=== PATIENT | female | born 2000 | race Hispanic/Latino ===

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

== ENCOUNTER 2024-09-08 13:44 | Emergency (ER) | payer SELFPAY ==
--- OUTSIDE RECORDS SUMMARY | 2024-09-08 13:48 | XMS REPORT | Continuity of Care Document ---
Author Name Unknown Address [address] [place] [address] [facility] thconnect Address [address] [place] [address] Care Team Providers Care Account Auditor Name Role Phone Uriah Truong Primary Care Physician [phone] Carrie Ellison Attending Clinician [phone] CARRIE FUENTES Attending Clinician Unavaila Leah aGrcia DO Attending Clinician [phone] LEAH GLORIA Attending Clinician Unavailab David Neumann Attending Clinician [phone] David DE LOS SANTOS Attending Clinician Unavailable Doctor Unassigned, [place]gram Attending Clinician U navailable CARRIE FUENTES Admitting Clinician Unavaila curt Payers Payer Name Policy Type Policy Number Effective Date Expirati on Date Source [facility] [id number] 2019 00:00:00 Problems Condition Name Condition Details Condition Category Status Onset Date Resolution Date Last Treatment Date Treating Clinician Comments Source No known active problems No known active problems Disease [facility] Allergies, Adverse Reactions, Alerts Allergy Name Allergy Type Status Severity Reaction(s) Onset Date Inactive Date Treating Clinician Comments Source NO KNOWN ALLERGIE S Drug Class Active [facility] Social History Social Habit Start Date Stop Date Quantity Comments Source Sexual orientation [facility] Exposure to SARS-CoV-2 (event) 2020-11-08 00:00:00 2020-12-08 20:50:00 Not sure [facility] Sex Assigned At 2002 00:00:00 2000 00:00:00 [facility] Smoking Status Start Date Stop Date Source Tobacco smoking consumption unknown [facility] Medications Ordered Medication Name Filled Medication Name Start Date Stop Date Current Medication? Ordering Clinician Indication Dosage Frequency Signature (SIG) Comments Components Source glycerin (adult) (FLEET GLYCERIN (ADULT)) suppository 1 Suppository 12-09 04:15: 00 12-09 03:20 :00 No 1{suppo sitory} 1 Suppositor y, Rectal, ONCE, 1 dose, 12/08/20 at 2315, JACKSON [facility] cefTRIAXone (ROCEPHIN) injection 1,000 mg 12-09 04:00: 00 12-09 03:11 :00 No 1000mg 1,000 mg, Intramuscu lar, ONCE, 1 dose, 12/08/20 at 2300, JACKSON
Re ason for Anti-Infec tive: Documented Infection< br>Documen marjorie Infection Site: Urine
D uration of Therapy: 7 days [facility] magnesium citrate solution 300 mL 12-09 03:30: 00 12-09 02:31 :00 No 300mL 300 mL, Oral, ONCE, 1 dose, 12/08/20 at 2230, JACKSON [facility] sodium phosphates (READY-TO-U SE ENEMA) 19-7 gram/118 mL enema 1 Enema 12-09 03:30: 00 12-09 02:35 :00 No 1{enema } 1 Enema, Rectal, ONCE, 1 dose, 12/08/20 at 2230, Routine [facility] docusate 100 mg capsule 12-08 00:00: 00 Yes [id number] 100mg Take 1 capsule by mouth once daily as needed for Constipati on. [facility] cefdinir 300 mg capsule 12-08 00:00: 00 12-16 04:59 :00 No [id number] 300mg Take 1 capsule by mouth every 12 (twelve) hours for 7 days. [facility] polyethylen e glycol 3350 (MIRALAX) 17 gram/dose powder 12-08 00:00: 00 12-14 04:59 :00 No [id number] 17g Take 17 g by mouth daily for 5 days. [facility] HYDROcodone -acetaminop hen (NORCO 5) 5-325 mg tablet 1 tablet 11-29 01:30: 00 11-29 00:40 :00 No 1{tbl} 1 tablet, Oral, ONCE, 1 dose, 11/28/20 at 2030, JACKSON [facility] diazePAM (VALIUM) tablet 5 mg 11-29 01:30: 00 11-29 00:40 :00 No 5mg 5 mg, Oral, ONCE, 1 dose, 11/28/20 at 2030, JACKSON [facility] cyclobenzap rine 10 mg tablet 11-28 00:00: 00 Yes [id number] 10mg Take 1 tablet by mouth 3 (three) times daily as needed for Muscle Spasms. [facility] ibuprofen (IBU) tablet 800 mg 11-24 21:15: 00 11-24 20:29 :00 No 800mg 800 mg, Oral, ONCE, 1 dose, 11/24/20 at 1615, JACKSON [facility] ibuprofen 600 mg tablet 11-24 00:00: 00 Yes [id number] 600mg Take 1 tablet by mouth every 6 (six) hours as needed for Pain (scale 4-6). [facility] ondansetron (ZOFRAN ODT) 4 mg disintegrat ing tablet 08-16 00:00: 00 Yes [id number] 4mg Take 1 tablet by mouth every 8 (eight) hours as needed for Nausea and Vomiting (N/V). [facility] albuterol 90 mcg/actuati on inhaler 08-16 00:00: 00 Yes [id number] 2{puff} Inhale 2 Puffs every 4 (four) hours as needed for Wheezing or Shortness of Breath. [facility] benzonatate 200 mg capsule 08-16 00:00: 00 Yes [id number] 200mg Take 1 capsule by mouth 3 (three) times daily as needed for Cough for up to 20 doses. [facility] ibuprofen 600 mg tablet 2019-07 00:00: 00 Yes [id number] 600mg Take 1 tablet by mouth every 6 (six) hours as needed for Pain (scale 4-6). [facility] ondansetron (ZOFRAN ODT) 4 mg disintegrat ing tablet 2019-07 00:00: 00 Yes [id number] 4mg Take 1 tablet by mouth every 8 (eight) hours as needed for Nausea and Vomiting (N/V). [facility] amoxicillin 500 mg capsule 2019-07 00:00: 00 07-10 05:59 :00 No [id number] 500mg Take 1 capsule by mouth 3 (three) times daily for 10 days. [facility] dexAMETHaso ne 2 mg tablet 2019-07 00:00: 00 06-30 05:59 :00 No [id number] 10mg Take 5 tablets by mouth once now for 1 dose. [facility] Vital Signs Vital Name Observation Time Observation Value Comments S ource Systolic blood pressure 2020-12-09 03:00:00 142 mm[Hg] [facility] Diastolic blood pressure 2020-12-09 03:00:00 92 mm[Hg] [facility] Heart rate 2020-12-09 03:00:00 105 /min [facility] Respiratory rate 2020-12-09 03:00:00 18 /min [facility] Oxygen saturation in Arterial blood by Pulse oximetry 2020-12-09 03:00:00 100 /min [facility] Body temperature 2020-12-09 02:41:00 36.67 Fransisca [facility] Body height 2020-12-09 01:52:00 157.5 cm [facility] Body weight 2020-12-09 01:52:00 68.04 kg [facility] BMI 2020-12-09 01:52:00 27.44 kg/m2 [facility] Systolic blood pressure 2020-12-09 03:00:00 142 mm[Hg] [facility] Diastolic blood pressure 2020-12-09 03:00:00 92 mm[Hg] [facility] Heart rate 2020-12-09 03:00:00 105 /min [facility] Respiratory rate 2020-12-09 03:00:00 18 /min [facility] Oxygen saturation in Arterial blood by Pulse oximetry 2020-12-09 03:00:00 100 /min [facility] Body temperature 2020-12-09 02:41:00 36.67 Fransisca [facility] Body height 2020-12-09 01:52:00 157.5 cm [facility] Body weight 2020-12-09 01:52:00 68.04 kg [facility] BMI 2020-12-09 01:52:00 27.44 kg/m2 [facility] Systolic blood pressure 2020-11-29 01:00:00 123 mm[Hg] [facility] Diastolic blood pressure 2020-11-29 01:00:00 82 mm[Hg] [facility] Heart rate 2020-11-29 01:00:00 78 /[facility] Respiratory rate 2020-11-29 01:00:00 20 /min [facility] Oxygen saturation in Arterial blood by Pulse oximetry 2020-11-29 01:00:00 100 /min [facility] Body temperature 2020-11-28 23:58:00 36.78 Fransisca [facility] Body weight 2020-11-28 23:58:00 70.308 kg [facility] Systolic blood pressure 2020-11-29 01:00:00 123 mm[Hg] [facility] Diastolic blood pressure 2020-11-29 01:00:00 82 mm[Hg] [facility] Heart rate 2020-11-29 01:00:00 78 /min [facility] Respiratory rate 2020-11-29 01:00:00 20 /min [facility] Oxygen saturation in Arterial blood by Pulse oximetry 2020-11-29 01:00:00 100 /min [facility] Body temperature 2020-11-28 23:58:00 36.78 Fransisca [facility] Body weight 2020-11-28 23:58:00 70.308 kg [facility] Respiratory rate 2020-11-24 19:59:00 20 /min [facility] Body weight 2020-11-24 19:59:00 70.308 kg [facility] Oxygen saturation in Arterial blood by Pulse oximetry 2020-11-24 19:59:00 99 /min [facility] Systolic blood pressure 2020-11-24 19:59:00 135 mm[Hg] [facility] Diastolic blood pressure 2020-11-24 19:59:00 86 mm[Hg] [facility] Heart rate 2020-11-24 19:59:00 87 /min [facility] Body temperature 2020-11-24 19:59:00 36.94 Fransisca [facility] Respiratory rate 2020-11-24 19:59:00 20 /min [facility] Body weight 2020-11-24 19:59:00 70.308 kg [facility] Oxygen saturation in Arterial blood by Pulse oximetry 2020-11-24 19:59:00 99 /min [facility] Systolic blood pressure 2020-11-24 19:59:00 135 mm[Hg] [facility] Diastolic blood pressure 2020-11-24 19:59:00 86 mm[Hg] [facility] Heart rate 2020-11-24 19:59:00 87 /min [facility] Body temperature 2020-11-24 19:59:00 36.94 Fransisca [facility] Systolic blood pressure 2020-08-16 16:13:00 133 mm[Hg] [facility] Diastolic blood pressure 2020-08-16 16:13:00 84 mm[Hg] [facility] Heart rate 2020-08-16 16:13:00 78 /min [facility] Body temperature 2020-08-16 16:13:00 37 Fransisca [facility] Respiratory rate 2020-08-16 16:13:00 20 /min [facility] Body height 2020-08-16 16:13:00 157.5 cm [facility] Body weight 2020-08-16 16:13:00 68.04 kg [facility] BMI 2020-08-16 16:13:00 27.44 kg/m2 [facility] Oxygen saturation in Arterial blood by Pulse oximetry 2020-08-16 16:13:00 98 /min [facility] Systolic blood pressure 2020-08-16 16:13:00 133 mm[Hg] [facility] Diastolic blood pressure 2020-08-16 16:13:00 84 mm[Hg] [facility] Heart rate 2020-08-16 16:13:00 78 /min [facility] Body temperature 2020-08-16 16:13:00 37 Fransisca [facility] Respiratory rate 2020-08-16 16:13:00 20 /min [facility] Body height 2020-08-16 16:13:00 157.5 cm [facility] Body weight 2020-08-16 16:13:00 68.04 kg [facility] BMI 2020-08-16 16:13:00 27.44 kg/m2 [facility] Oxygen saturation in Arterial blood by Pulse oximetry 2020-08-16 16:13:00 98 /min [facility] Systolic blood pressure 2020-06-29 23:54:00 137 mm[Hg] [facility] Diastolic blood pressure 2020-06-29 23:54:00 84 mm[Hg] [facility] Heart rate 2020-06-29 23:54:00 105 /min [facility] Body temperature 2020-06-29 23:54:00 37.39 Fransisca [facility] Respiratory rate 2020-06-29 23:54:00 18 /min [facility] Body height 2020-06-29 23:54:00 160 cm [facility] Body weight 2020-06-29 23:54:00 69.854 kg [facility] BMI 2020-06-29 23:54:00 27.28 kg/m2 [facility] Oxygen saturation in Arterial blood by Pulse oximetry 2020-06-29 23:54:00 98 /min [facility] Systolic blood pressure 2020-06-29 23:54:00 137 mm[Hg] [facility] Diastolic blood pressure 2020-06-29 23:54:00 84 mm[Hg] [facility] Heart rate 2020-06-29 23:54:00 105 /min [facility] Body temperature 2020-06-29 23:54:00 37.39 Fransisca [facility] Respiratory rate 2020-06-29 23:54:00 18 /min [facility] Body height 2020-06-29 23:54:00 160 cm [facility] Body weight 2020-06-29 23:54:00 69.854 kg [facility] BMI 2020-06-29 23:54:00 27.28 kg/m2 [facility] Oxygen saturation in Arterial blood by Pulse oximetry 2020-06-29 23:54:00 98 /min [facility] Procedures Procedure Date / Time Performed Performing Clinicia n Source XR KUB 2020-12-09 02:14:31 [facility] 2020-12-09 02:08:00 [facility] PO[facility] TEST 2020-12-09 02:07:00 Destiny Rosa [facility] CONSENT/REFUSAL FOR DIAGNOSIS AND TREATMENT 2020-12-09 01:42:33 Doctor Unassigned, Pegram [facility] URINALYSIS 2020-11-29 00:40:00 [facility] FOR [facility]AG[facility] AND TREATMENT 2020-11-28 23:50:46 Doctor Unassigned, [place] [facility] POCT TEST 2020-11-24 20:28:00 Hal Fuentes [facility] XR CHEST 2 VW 2020-11-24 20:22:33 Carrie Fuentes [facility] URINALYSIS 2020-11-24 20:21:00 Fidencio Carrie Anant [facility] CONSENT/REFUSAL FOR DIAGNOSIS AND TREATMENT 2020-11-24 19:54:17 Doctor Unassigned, [place] [facility] POCT TEST 2020-08-16 16:57:00 David De Los Santos [facility] NOTICE OF PRIVACY PRACTICES 2020-08-16 16:07:36 Doctor Unassigned, [place] [facility] CONSENT/REFUSAL FOR DIAGNOSIS AND TREATMENT 2020-08-16 16:07:17 Doctor Unassigned, [place] [facility] NOTICE OF PRIVACY PRACTICES 2020-06-29 23:44:57 Doctor Unassigned, [place] [facility] CONSENT/REFUSAL FOR DIAGNOSIS AND TREATMENT 2020-06-29 23:44:38 Doctor Unassigned, [place] [facility] Encounters Start Date/Time End Date/Time Encounter Type Admission Type Attending [facility] Care Department Encounter ID Source 2022-05-21 14:08:27 2022-05-21 14:08:27 Outpatient [facility] [id number] Magdiel Omer 2022-05-20 17:03:34 2022-05-20 17:03:34 Outpatient [facility] [id number] Magdiel Omer 2020-12-08 20:55:00 2020-12-08 22:53:00 Emergency CorwinAylin castañedajohn Anant [facility] 1.2.840.114 350.1.13.10 4.2.7.2.686 [id number] 2020-12-08 20:55:00 2020-12-08 22:53:00 Emergency Carrie Fuentes [facility] 1.2.840.114 350.1.13.10 4.2.7.2.686 [id number] [facility] 2020-12-08 20:55:00 2020-12-08 22:53:00 Emergency X CORWINRAMÍREZKATIEDEVIN CARRIE [facility] ERT [id number] [facility] 2020-11-28 19:00:00 2020-11-28 20:58:00 Emergency Leah Gloria [facility] 1.2.840.114 350.1.13.10 4.2.7.2.686 [id number] 2020-11-28 19:00:00 2020-11-28 20:58:00 Emergency Leah Gloria [facility] 1.2.840.114 350.1.13.10 4.2.7.2.686 [id number] [facility] 2020-11-28 19:00:00 2020-11-28 19:00:00 Emergency X LEAH GLORIA [facility] ERT [id number] [facility] 2020-11-24 15:00:00 2020-11-24 15:48:00 Emergency Aylin Fuentesjohn Anant [facility] 1.2.840.114 350.1.13.10 4.2.7.2.686 [id number] 2020-11-24 15:00:00 2020-11-24 15:48:00 Emergency Carrie Fuentes [facility] 1.2.840.114 350.1.13.10 4.2.7.2.686 [id number] [facility] 2020-11-24 14:54:00 2020-11-24 14:54:[address] [facility] ERT [id number] [facility] 2020-08-16 10:14:00 2020-08-16 11:35:00 Emergency David De Los Santos [facility] 1.2.840.114 350.1.13.10 4.2.7.2.686 [id number] 2020-08-16 10:14:00 2020-08-16 11:35:00 Emergency David De Los Santos [facility] 1.2.840.114 350.1.13.10 4.2.7.2.686 [id number] [facility] 2020-08-16 10:14:00 2020-08-16 10:14:00 Emergency X David DE LOS SANTOS [facility] ERT [id number] [facility] 2020-08-16 00:00:00 2020-08-16 00:00:00 Patient Secure Msg Doctor Unassigned, Pegram [facility] 1.2.840.114 350.1.13.10 4.2.7.2.686 [id number] [facility] 2020-08-16 00:00:00 2020-08-16 00:00:00 Orders Only Doctor Unassigned, Pegram [facility] 1.2.840.114 350.1.13.10 4.2.7.2.686 [id number] [facility] 2020-08-16 00:00:00 2020-08-16 00:00:00 Orders Only Doctor Unassigned, Pegram [facility] 1.2.840.114 350.1.13.10 4.2.7.2.686 [id number] 2020-06-29 17:56:00 2020-06-29 18:41:00 Emergency David De Los Santos [facility] 1.2.840.114 350.1.13.10 4.2.7.2.686 [id number] [facility] 2020-06-29 17:56:00 2020-06-29 18:41:00 Emergency David De Los Santos [facility] 1.2.840.114 350.1.13.10 4.2.7.2.686 [id number] 2020-06-29 17:45:00 2020-06-29 17:45:[address] [facility] ERT [id number] [facility] Results Test Description Test Time Test Comments Results Result Co mments Source [id number]:07:00* Test Item Value Reference Range Interpretation Comme nts POCT PREG (test code = 1605) negative On board controls acceptable with C Line (test code = 3574) present POCT PREG LOT # (test code = 3575) [id number] POCT PREG TEST DATE ( test code = 3576) 06/18/2022 Lab Interpretation (test cod e = 51675-0) Normal [facility] 00:59:53* Test Item Value Reference Range Interpretation Comme nts APPEARANCE (test code = 6004381266) Clear Clear COLOR (test code = 3150409434) Yellow Yellow PH (test code = 6968843595) 4.8-8.0 SP GRAVITY (test code = 7218187644) 1.003-1.030 GLU U QUAL (test code = 7961226645) Normal Normal BLOOD (test code = 4648813074) Negative Negative KETONES (test code = 0428378999) Negative Negative PROTEIN (test code = 2887-8) Negative Negative UROBILIN (test code = 0151369648) Normal Normal BILIRUBIN (test code = 2652375662) Negative Negative NITRITE (test code = 2270542449) Negative Negative LEUK RHONDA (test code = 2626943873) Negative Negative RBC/HPF (test code = 6768120882) <1 See_Comment [Automated Estrogen Gene Testa ge] The system which generated this result transmitted reference range: 0 - 3 HPF. The reference range was not used to interpret this result as normal/abnormal. WBC/HPF (test code = 1822530361) See_Comment [Automated Estrogen Gene Testa ge] The system which generated this result transmitted reference range: 0 - 5 HPF. The reference range was not used to interpret this result as normal/abnormal. BACTERIA (test code = 1063997409) Negative Negative MUCOUS (test code = 6066958402) Slight Negative LPF A SQ EPITH (test code = 9760007359) HPF Lab Interpretation (test code = 33205-1) [facility]normal [facility] 20:36:01* Test Item Value Reference Range Interpretation Comme nts APPEARANCE (test code = 8644751494) Clear Clear COLOR (test code = 9220707390) Yellow Yellow PH (test code = 8145259556) 4.8-8.0 SP GRAVITY (test code = 6683511498) 1.003-1.030 GLU U QUAL (test code = 7965411410) Normal Normal BLOOD (test code = 2190313751) Negative Negative KETONES (test code = 7178488785) Negative Negative PROTEIN (test code = 2887-8) Negative Negative UROBILIN (test code = 2676893767) Normal Normal BILIRUBIN (test code = 5237866026) Negative Negative NITRITE (test code = 2499851155) Negative Negative LEUK RHONDA (test code = 7452150513) Negative Negative RBC/HPF (test code = 7605881713) See_Comment [Automated messa ge] The system which generated this result transmitted reference range: 0 - 3 HPF. The reference range was not used to interpret this result as normal/abnormal. WBC/HPF (test code = 4212885037) See_Comment [Automated messa ge] The system which generated this result transmitted reference range: 0 - 5 HPF. The reference range was not used to interpret this result as normal/abnormal. BACTERIA (test code = 0644799107) Negative Negative MUCOUS (test code = 0482707903) Slight Negative LPF A SQ EPITH (test code = 0370776224) HPF Lab Interpretation (test code = 44290-3) [facility] [id number] 20:28:00* Test Item Value Reference Range Interpretation Comme nts POCT PREG (test code = 1605) negative On board controls acceptable with C Line (test code = 3574) present POCT PREG LOT # (test code = 3575) [id number] POCT PREG TEST DATE ( test code = 3576) 06/18/2022 Lab Interpretation (test cod e = 83469-8) [facility] [id number] 16:57:00* Test Item Value Reference Range Interpretation Comme nts POCT PREG (test code = 1605) negative On board controls acceptable with C Line (test code = 3574) present POCT PREG LOT # (test code = 3575) [id number] POCT PREG TEST DATE ( test code = 3576) 03/19/2022 Lab Interpretation (test cod e = 78889-9) Normal [facility]
[2024-09-08] MEDS ORDERED: KETOROLAC 30 MG/ML INJ ONE (14:22)
--- NOTE | 2024-09-08 14:39 | RAD REPORT ---
EXAMINATION: ONE VIEW CHEST XR CLINICAL INDICATION: CHEST PAIN TECHNIQUE: Frontal chest projection is submitted. Examination is limited by patient positioning and t echnique. COMPARISON: 12/09/2020 FINDINGS: The lungs are well inflated and clear. The heart is normal in size. No displaced fractures identified . IMPRESSION: No acute intrathoracic abnormalities.
[2024-09-08 14:48] LABS: Absolute Eosinophils 0.3 K/uL (0-0.5); Absolute Lymphocytes (CBC) 2.6 K/uL (0.7-4.9); Absolute Monocytes 0.6 K/uL (0.1-1.3); Absolute Neutrophil 4.5 K/uL (1.8-8.0); Basophils % 0.5 % (0-1.3); Eosinophils % 4.2 % (0-4.4); Hematocrit 46.7 % (36.0-45.0); Hemoglobin 15.6 g/dL (12.0-15.0); Lymphocytes % 31.8 % (15.3-44.8); MCHC 33.5 g/dL (32.0-36.0); MCV 89.7 fL (80-100); MPV 8.7 fL (7.6-11.3); Monocytes % 7.6 % (3.3-12.3); Neutrophils % 55.9 % (41.7-73.7); Platelets 343 thou/uL (152-406)
[2024-09-08 15:05] LABS: ALT/SGPT 17 U/L (13-56); AST/SGOT 14 U/L (15-37); Albumin 4.1 g/dL (3.4-5.0); Albumin/Globulin Ratio 1.1 (1.1-1.8); Alkaline Phosphatase 86 U/L (45-117); Anion Gap 8.6 mEq/L (5.0-15.0); BUN Blood Urea Nitrogen 9 mg/dL (7-18); Bicarbonate 25 mEq/L (21-32); Bilirubin Direct 0.2 mg/dL (0-0.2); Bilirubin Indirect, Calculated 0.5 mg/dL (0.2-0.8); Bilirubin Total 0.7 mg/dL (0.2-1.0); Globulin 3.8 g/dL (2.3-3.5); Glomerular Filtration Rate 107 ml/min (=/>90); Glucose Level 87 mg/dL (74-106); Potassium 3.6 mEq/L (3.5-5.1); Protein, Total 7.9 g/dL (6.4-8.2); Sodium Level 138 mEq/L (136-145)
[2024-09-08 15:08] LABS: Troponin High Sensitivity < 3.0 pg/mL (<58.9)
--- NOTE | 2024-09-08 15:31 | EDPHYS ---
Physician Documentation [facility] Name: Kiah Murray Age: 24 yrs Sex: Female : 2000 Arrival Date: 09/08/2024 Time: 13:44 Bed 20 Private MD: ED Physician Josse Reynoso HPI: 09/08 14:17 This 24 yrs old Female presents to ER via Ambulatory with complaints of Chest rt Pain, Breathing Difficulty. 14:17 Patient presents to the ED with chest pain starting at about 11:00 today. 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 States that the pain is worse with deep inspiration but denies any difficulty breathing to me. Denies other acute complaints at this time, symptoms are moderate severity, aching nature, nonradiating, no other aggravating elevating factors, states that the symptoms are beginning to improve now.. [employer] PACKAGES: 14:02 LMP 08/08/2023, unknown ap3 Historical: - Allergies: 14:01 No Known Allergies; ap3 - Home Meds: 14:01 None [Active]; ap3 - PMHx: 14:01 None; ap3 - Immunization history:: Client reports receiving the 2nd dose of the Covid vaccine, Flu vaccine is not up to date. - Infectious Disease History:: Denies. - Social history:: Smoking status: Reported history of juuling and/or vaping. Patient uses street drugs, marijuana. - Family history:: not pertinent. ROS: 14:17 Constitutional: Negative for fever, chills, and weight loss, Respiratory: Negative for rt shortness of breath, cough, wheezing, and pleuritic chest pain, Abdomen/GI: Negative for abdominal pain, nausea, vomiting, diarrhea, and constipation, MS/Extremity: Negative for injury and deformity, Skin: Negative for injury, rash, and discoloration, Neuro: Negative for headache, weakness, numbness, tingling, and seizure, 14:17 Cardiovascular: Positive for chest pain, Negative for chest pain, Exam: 14:17 Constitutional: This is a well developed, well nourished patient who is awake, alert, rt and in no acute distress. Head/Face: Normocephalic, atraumatic. Chest/axilla: Normal chest wall appearance and motion. Nontender with no deformity. No lesions are appreciated. Cardiovascular: Regular rate and rhythm with a normal S1 and S2. No gallops, murmurs, or rubs. Normal PMI, no JVD. No pulse deficits. Respiratory: Lungs have equal breath sounds bilaterally, clear to auscultation and percussion. No rales, rhonchi or wheezes noted. No increased work of breathing, no retractions or nasal flaring. Abdomen/GI: Soft, non-tender, with normal bowel sounds. No distension or tympany. No guarding or rebound. No evidence of tenderness throughout. Skin: Warm, dry with normal turgor. Normal color with no rashes, no lesions, and no evidence of cellulitis. MS/ Extremity: Pulses equal, no cyanosis. Neurovascular intact. Full, normal range of motion. 14:17 ECG was reviewed by the Attending Physician. Vital Signs: 13:59 BP 142 / 86; Pulse 71; Resp 17; Temp 98.4(O); Pulse Ox 100% ; Weight 68.04 kg; Height 5 ap3 ft. 2 in. ; Pain 9/10; 15:42 BP 126 / 82; Pulse 80; Resp 18 S; Pulse Ox 99% on R/A; kc6 13:59 Body Mass Index 27.44 (68.04 kg, 157.48 cm) ap3 13:59 Pain Scale: Adult ap3 MDM: 14:06 Medical Screening Exam initiated rt 15:54 Differential diagnosis: Chest wall pain, pulmonary contusion, pneumothorax. HEART rt Score: History: Slightly Suspicious (0), ECG: Normal (0), Age: < or = 45 years (0), Risk Factors: No Risk Factors Known (0), Troponin: < or = 1 x Normal Limit (0), Total Score = 0. Data reviewed: vital signs, nurses notes, lab test result(s), EKG, radiologic studies. I considered the following discharge prescriptions or medication management in the emergency department Medications were administered in the Emergency Department. See MAR. Independent interpretation of the following test(s) in the Emergency Department X-Ray: My interpretation is No pneumonia seen on interpretation of x-ray images. Test considered but Not performed: CT: Do not suspect pulmonary embolism clinically, PE RC negative, does not require CT angiogram. Counseling: I had a detailed discussion with the patient and/or guardian regarding the historical points, exam findings, and any diagnostic results supporting the discharge/admit diagnosis, lab results, radiology results, the need for outpatient follow up, to return to the emergency department if symptoms worsen or persist or if there are any questions or concerns that arise at home. Response to treatment: the patient's symptoms have markedly improved after treatment. 09/08 14:11 Order name: Basic Metabolic Panel; Complete Time: 15:17 rt 09/08 14:11 Order name: CBC with Diff; Complete Time: 15: rt 09/08 14:11 Order name: LFT's; Complete Time: 15:17 rt 09/08 14:11 Order name: Troponin HS; Complete Time: 15:17 rt 09/08 14:11 Order name: XRAY Chest (1 view); Complete Time: 15: rt 09/08 14:11 Order name: EKG; Complete Time: 14:11 rt 09/08 14:11 Order name: Cardiac monitoring; Complete Time: 14:44 rt 09/08 14:11 Order name: EKG - Nurse/Tech; Complete Time: 14:13 rt 09/08 14:11 Order name: IV Saline Lock; Complete Time: 14:44 rt 09/08 14:11 Order name: Labs collected and sent; Complete Time: 14:44 rt 09/08 14:11 Order name: O2 Per Protocol; Complete Time: 14:13 rt 09/08 14:11 Order name: O2 Sat Monitoring; Complete Time: 14:13 rt EC:17 Rate is 67 beats/min. Rhythm is regular, Normal Sinus Rhythm with No ectopy. QRS [place] rt is Normal. UT interval is normal. QRS interval is normal. QT interval is normal. No Q waves. T waves are Normal. No ST changes noted. Administered Medications: 14:44 Drug: Ketorolac IM 30 mg IM once Route: IM; Site: left deltoid; kc6 15:33 Follow up: Response: No adverse reaction; Pain is decreased kc6 Disposition Summary: 09/08/24 15:31 Discharge Ordered Notes: Location: Home rt Problem: new rt Symptoms: have improved rt Condition: Stable rt Diagnosis - Chest wall pain rt Followup: rt - With: Private Physician - When: 2 - 3 days - Reason: Discharge Instructions: - Discharge Summary Sheet rt - Chest Wall Pain rt Forms: - Work release form rt - Medication Reconciliation Form rt - Antibiotic Education rt - Prescription Opioid Use rt - Patient Portal Instructions rt - Leadership Thank You Letter rt Signatures: Dispatcher [employer] EDPiper Rao RN RN ap3 Madelaine Rice RN RN kc6 Josse Reynoso MD MD rt Corrections: (The following items were deleted from the chart) 14:11 14:11 BASIC METABOLIC PANEL+C.LAB.BRZ ordered. EDMS EDMS 14: 14:11 CBC+H.LAB.BRZ ordered. EDMS EDMS 14: 14:11 HEPATIC FUNCTION+C.LAB.BRZ ordered. EDMS EDMS 14: 14:11 Troponin High Sensitivity+C.LAB.BRZ ordered. EDMS EDMS
--- NOTE | 2024-09-08 15:31 | ER ---
Nurse's Notes [facility] Name: Kiah Murray Age: 24 yrs Sex: Female : 2000 Arrival Date: 09/08/2024 Time: 13:44 Bed 20 Private MD: Diagnosis: Chest wall pain Presentation: 09/08 13:59 Chief complaint: Patient states: "my heart hurts when i breathe and when i do certain ap3 movements, like stretching. It feels so tight". Patient currently rates the pain as a 9/10 and states she has never had this pain before. Coronavirus screen: At this time, the client does not indicate any symptoms associated with coronavirus-19. Ebola Screen: No symptoms or risks identified at this time. Initial Sepsis Screen: Does the patient meet any 2 criteria? No. Patient's initial sepsis screen is negative. Does the patient have a suspected source of infection? No. Patient's initial sepsis screen is negative. Risk Assessment: Do you want to hurt yourself or someone else? Patient reports no desire to harm self or others. Onset of symptoms was September 08, 2024 at 11:00. 13:59 Method Of Arrival: Ambulatory ap3 13:59 Acuity: LYN 2 ap3 Triage Assessment: 14:01 General: Appears in no apparent distress. Behavior is calm, cooperative, appropriate ap3 for age. Pain: Complains of pain in chest Pain currently is 9 out of 10 on a pain scale. Neuro: Level of Consciousness is awake, alert, obeys commands, Oriented to person, place, time, situation, Appropriate for age. Cardiovascular: Reports chest pain. Respiratory: Airway is patent Respiratory effort is even, unlabored, Respiratory pattern is regular, symmetrical. 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 - Infectious Disease History:: Denies. - Social history:: Smoking status: Reported history of juuling and/or vaping. Patient uses street drugs, marijuana. - Family history:: not pertinent. Screenin:02 [facility] ED Fall Risk Assessment (Adult) History of falling in the last 3 months, ap3 including since admission No falls in past 3 months (0 pts) Confusion or Disorientation No (0 pts) Intoxicated or Sedated No (0 pts) Impaired Gait No (0 pts) Mobility Assist Device Used No (0 pt) Altered Elimination No (0 pt) Score/Fall Risk Level 0 - 2 = Low Risk Oriented to surroundings, Maintained a safe environment, Educated pt \\T\\ family on fall prevention, incl call for assistance when getting out of bed, Assessed \\T\\ reinforced patient's understanding of fall precautions, Hourly rounding (assess needs \\T\\ fall precautionary measures) done, Used ambulatory aids as needed (educated on \\T\\ assisted with). Abuse screen: Denies threats or abuse. Nutritional screening: No deficits noted. Tuberculosis screening: No symptoms or risk factors identified. Assessment: 14:02 Pain: Pain began 11:00 am today. ap3 14:15 General: Appears in no apparent distress. comfortable, well groomed, well developed, kc6 Behavior is calm, cooperative, appropriate for age. Pain: Complains of pain in anterior aspect of left upper chest and left lateral anterior chest Pain does not radiate. Neuro: Level of Consciousness is awake, alert, obeys commands, Oriented to person, place, time, situation, Appropriate for age. Cardiovascular: Reports chest pain, Heart tones S1 S2 present Capillary refill < 3 seconds Rhythm is regular. Respiratory: Reports pain with movement pain with respiration Airway is patent Trachea midline Respiratory effort is even, unlabored, Respiratory pattern is regular, symmetrical, Breath sounds are clear bilaterally. GI: No signs and/or symptoms were reported involving the gastrointestinal system. : No signs and/or symptoms were reported regarding the genitourinary system. EENT: No signs and/or symptoms were reported regarding the EENT system. Derm: No signs and/or symptoms reported regarding the dermatologic system. Skin is intact, is healthy with good turgor, Skin is pink, warm \\T\\ dry. Musculoskeletal: No signs and/or symptoms reported regarding the musculoskeletal system. Circulation, motion, and sensation intact. Range of motion: intact in all extremities. 15:34 Reassessment: Patient appears in no apparent distress at this time. No changes from kc6 previously documented assessment. Patient and/or family updated on plan of care and expected duration. Pain level reassessed. Patient is alert, oriented x 3, equal unlabored respirations, skin warm/dry/pink. Vital Signs: 13:59 BP 142 / 86; Pulse 71; Resp 17; Temp 98.4(O); Pulse Ox 100% ; Weight 68.04 kg; Height 5 ap3 ft. 2 in. ; Pain 9/10; 15:42 BP 126 / 82; Pulse 80; Resp 18 S; Pulse Ox 99% on R/A; kc6 13:59 Body Mass Index 27.44 (68.04 kg, 157.48 cm) ap3 13:59 Pain Scale: Adult ap3 ED Course: 13:50 Patient arrived in ED. al6 13:51 Josse Reynoso MD is Attending Physician. rt 14:01 Triage completed. ap3 14:02 Arm band placed on right wrist. ap3 14:02 Patient maintains SpO2 saturation greater than 95% on room air. ap3 14:08 Madelaine Rice, RN is Primary Nurse. kc6 14:14 EKG done, by ED staff, reviewed by Josse Reynoso MD. ap3 14:30 XRAY Chest (1 view) In Process Unspecified. EDMS 14:44 Inserted saline lock: 20 gauge in right forearm, using aseptic technique. Blood kc6 collected. Flushed with 10 mL NS. 14:45 Patient has correct armband on for positive identification. Bed in low position. Call kc6 light in reach. Side rails up X 1. Adult w/ patient. monitor car operator on. Pulse ox on. NIBP on. Door closed. Noise minimized. Lights dimmed. Warm blanket given. Pillow given. 15:42 No provider procedures requiring assistance completed. IV discontinued, intact, kc6 bleeding controlled, No redness/swelling at site. Pressure dressing applied. Administered Medications: 14:44 Drug: Ketorolac IM 30 mg IM once Route: IM; Site: left deltoid; kc6 15:33 Follow up: Response: No adverse reaction; Pain is decreased kc6 Medication: 15:43 VIS not applicable for this client. kc6 Outcome: 15:31 Discharge ordered by . rt 15:42 Discharged to home ambulatory, with significant other, kc6 15:42 Condition: improved 15:42 Discharge instructions given to patient, Instructed on discharge instructions, follow up and referral plans. Demonstrated understanding of instructions, follow-up care, 15:43 Patient left the ED. kc6 Signatures: Dispatcher [employer] Piper Contreras RN RN ap3 Madelaine Rice RN RN kc6 Josse Reynoso MD MD rt Lynda Lacey
[2024-09-09 16:02] VITALS: TEMP 98.4
[2024-09-09 16:03] VITALS: BP 126/82; O2SAT 99
--- NOTE | 2024-09-12 12:16 | EKG ---
Test Date: 2024-09-08 Test Time: 14:11:59 [place] Machine Operator: ALP MEASUREMENT RESULTS: Intervals: Rate: 67 PA: 178 QRSD: 96 QT: 384 QTc: 405 [place]: P: 64 PA: 178 QRS: 83 T: 64 INTERPRETIVE STATEMENTS: Normal sinus rhythm Normal ECG Compared to ECG 12/09/2020 22:16:40 Sinus arrhythmia no longer present Myocardial infarct finding no longer present Electronically Signed On 09-12-24 12:12:04 [employer] STAFF by Aneudy Coleman
== END 2024-09-08 15:43 | disposition home or self-care (01) ==
LOC: ER 13:44
DX: R07.89 Other chest pain (principal)
CPT/HCPCS: 36415; 71045; 80048; 80076; 84484; 85025; 93005; 96372; 99285

== ENCOUNTER 2024-12-07 15:20 | Emergency (ER) | payer BC ==
--- OUTSIDE RECORDS SUMMARY | 2024-12-07 15:24 | XMS REPORT | Continuity of Care Document ---
Author Name Unknown Address [address] [place] [address] [facility] [place] Address 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 Phone Uriah Truong Primary Care Physician [phone] Carrie Ellison Attending Clinician [phone] CARRIE FUNETES Attending Clinician Unavaila ble Leah Gloria DO Attending Clinician [phone] LEAH GLORIA Attending Clinician Unavailab David Neumann Attending Clinician [phone] David DE LOS SANTOS Attending Clinician Unavailable Doctor Unassigned, [place] Attending Clinician U navailable CARRIE FUENTES Admitting Clinician Unavaila curt Payers Payer Name Policy Type Policy Number Effective Date Expirati on Date Source [facility] [id number] 2019 00:00:00 Problems Condition Name Condition Details Condition Category Status Onset Date Resolution Date Last Treatment Date Treating Clinician Comments Source No known active problems No known active problems Disease [facility] Allergies, Adverse Reactions, Alerts Allergy Name Allergy Type Status Severity Reaction(s) Onset Date Inactive Date Treating Clinician Comments Source NO KNOWN ALLERGIE S Drug Class Active [facility] Social History Social Habit Start Date Stop Date Quantity Comments Source Sexual orientation U [facility] Exposure to SARS-CoV-2 (event) 2020-11-08 00:00:00 2020-12-08 20:50:00 Not sure [facility] Sex Assigned At 2000 00:00:00 2000 00:00:00 [facility] Smoking Status Start Date Stop Date Source Tobacco smoking consumption unknown [facility] Medications Ordered Medication Name Filled Medication Name Start Date Stop Date Current Medication? Ordering Clinician Indication Dosage Frequency Signature (SIG) Comments Components Source glycerin (adult) (FLEET GLYCERIN (ADULT)) suppository 1 Suppository 12-09 04:15: 00 12-09 03:20 :00 No 1{suppo sitory} 1 Suppositor y, Rectal, ONCE, 1 dose, 12/08/20 at 2315, JACKSON [facility] cefTRIAXone (ROCEPHIN) injection 1,000 mg 12-09 04:00: 00 12-09 03:11 :00 No 1000mg 1,000 mg, Intramuscu lar, ONCE, 1 dose, 12/08/20 at 2300, JACKSON
Re ason for Anti-Infec tive: Documented Infection< br>Documen marjorie Infection Site: Urine
D uration of Therapy: 7 days [facility] magnesium citrate solution 300 mL 12-09 03:30: 00 12-09 02:31 :00 No 300mL 300 mL, Oral, ONCE, 1 dose, 12/08/20 at 2230, JACKSON [facility] sodium phosphates (READY-TO-U SE ENEMA) 19-7 gram/118 mL enema 1 Enema 12-09 03:30: 00 12-09 02:35 :00 No 1{enema } 1 Enema, Rectal, ONCE, 1 dose, 12/08/20 at 2230, Routine [facility] docusate 100 mg capsule 12-08 00:00: 00 Yes [id number] 100mg Take 1 capsule by mouth once daily as needed for Constipati on. [facility] cefdinir 300 mg capsule 12-08 00:00: 00 12-16 04:59 :00 No [id number] 300mg Take 1 capsule by mouth every 12 (twelve) hours for 7 days. [facility] polyethylen e glycol 3350 (MIRALAX) 17 gram/dose powder 12-08 00:00: 00 12-14 04:59 :00 No [id number] 17g Take 17 g by mouth daily for 5 days. [facility] HYDROcodone -acetaminop hen (NORCO 5) 5-325 mg tablet 1 tablet 11-29 01:30: 00 11-29 00:40 :00 No 1{tbl} 1 tablet, Oral, ONCE, 1 dose, 11/28/20 at 2030, JACKSON [facility] diazePAM (VALIUM) tablet 5 mg 11-29 01:30: 00 11-29 00:40 :00 No 5mg 5 mg, Oral, ONCE, 1 dose, 11/28/20 at 2030, JACKSON [facility] cyclobenzap rine 10 mg tablet 11-28 00:00: 00 Yes [id number] 10mg Take 1 tablet by mouth 3 (three) times daily as needed for Muscle Spasms. [facility] ibuprofen (IBU) tablet 800 mg 11-24 21:15: 00 11-24 20:29 :00 No 800mg 800 mg, Oral, ONCE, 1 dose, 11/24/20 at 1615, JACKSON [facility] ibuprofen 600 mg tablet 11-24 00:00: 00 Yes [id number] 600mg Take 1 tablet by mouth every 6 (six) hours as needed for Pain (scale 4-6). [facility] ondansetron (ZOFRAN ODT) 4 mg disintegrat ing tablet 08-16 00:00: 00 Yes [id number] 4mg Take 1 tablet by mouth every 8 (eight) hours as needed for Nausea and Vomiting (N/V). [facility] albuterol 90 mcg/actuati on inhaler 08-16 00:00: 00 Yes [id number] 2{puff} Inhale 2 Puffs every 4 (four) hours as needed for Wheezing or Shortness of Breath. [facility] benzonatate 200 mg capsule 08-16 00:00: 00 Yes [id number] 200mg Take 1 capsule by mouth 3 (three) times daily as needed for Cough for up to 20 doses. [facility] ibuprofen 600 mg tablet 2019-07 00:00: 00 Yes [id number] 600mg Take 1 tablet by mouth every 6 (six) hours as needed for Pain (scale 4-6). [facility] ondansetron (ZOFRAN ODT) 4 mg disintegrat ing tablet 2019-07 00:00: 00 Yes [id number] 4mg Take 1 tablet by mouth every 8 (eight) hours as needed for Nausea and Vomiting (N/V). [facility] amoxicillin 500 mg capsule 2019-07 00:00: 00 07-10 05:59 :00 No [id number] 500mg Take 1 capsule by mouth 3 (three) times daily for 10 days. [facility] dexAMETHaso ne 2 mg tablet 2019-07 00:00: 00 06-30 05:59 :00 No [id number] 10mg Take 5 tablets by mouth once now for 1 dose. [facility] Vital Signs Vital Name Observation Time Observation Value Comments S tanisha Systolic blood pressure 2020-12-09 03:00:00 142 mm[Hg] [facility] Diastolic blood pressure 2020-12-09 03:00:00 92 mm[Hg] [facility] Heart rate 2020-12-09 03:00:00 105 /min [facility] Respiratory rate 2020-12-09 03:00:00 18 /min [facility] Oxygen saturation in Arterial blood by Pulse oximetry 2020-12-09 03:00:00 100 /min [facility] Body temperature 2020-12-09 02:41:00 36.67 Fransisca [facility] Body height 2020-12-09 01:52:00 157.5 cm [facility] Body weight 2020-12-09 01:52:00 68.04 kg [facility] BMI 2020-12-09 01:52:00 27.44 kg/m2 [facility] Systolic blood pressure 2020-12-09 03:00:00 142 mm[Hg] [facility] Diastolic blood pressure 2020-12-09 03:00:00 92 mm[Hg] [facility] Heart rate 2020-12-09 03:00:00 105 /min [facility] Respiratory rate 2020-12-09 03:00:00 18 /min [facility] Oxygen saturation in Arterial blood by Pulse oximetry 2020-12-09 03:00:00 100 /min [facility] Body temperature 2020-12-09 02:41:00 36.67 Fransisca [facility] Body height 2020-12-09 01:52:00 157.5 cm [facility] Body weight 2020-12-09 01:52:00 68.04 kg [facility] BMI 2020-12-09 01:52:00 27.44 kg/m2 [facility] Systolic blood pressure 2020-11-29 01:00:00 123 mm[Hg] [facility] Diastolic blood pressure 2020-11-29 01:00:00 82 mm[Hg] [facility] Heart rate 2020-11-29 01:00:00 78 /min [facility] Respiratory rate 2020-11-29 01:00:00 20 /min [facility] Oxygen saturation in Arterial blood by Pulse oximetry 2020-11-29 01:00:00 100 /min [facility] Body temperature 2020-11-28 23:58:00 36.78 Fransisca [facility] Body weight 2020-11-28 23:58:00 70.308 kg [facility] Systolic blood pressure 2020-11-29 01:00:00 123 mm[Hg] [facility] Diastolic blood pressure 2020-11-29 01:00:00 82 mm[Hg] [facility] Heart rate 2020-11-29 01:00:00 78 /min [facility] Respiratory rate 2020-11-29 01:00:00 20 /min [facility] Oxygen saturation in Arterial blood by Pulse oximetry 2020-11-29 01:00:00 100 /min [facility] Body temperature 2020-11-28 23:58:00 36.78 Fransisca [facility] Body weight 2020-11-28 23:58:00 70.308 kg [facility] Respiratory rate 2020-11-24 19:59:00 20 /min [facility] Body weight 2020-11-24 19:59:00 70.308 kg [facility] Oxygen saturation in Arterial blood by Pulse oximetry 2020-11-24 19:59:00 99 /min [facility] Systolic blood pressure 2020-11-24 19:59:00 135 mm[Hg] [facility] Diastolic blood pressure 2020-11-24 19:59:00 86 mm[Hg] [facility] Heart rate 2020-11-24 19:59:00 87 /min [facility] Body temperature 2020-11-24 19:59:00 36.94 Fransisca [facility] Respiratory rate 2020-11-24 19:59:00 20 /min [facility] Body weight 2020-11-24 19:59:00 70.308 kg [facility] Oxygen saturation in Arterial blood by Pulse oximetry 2020-11-24 19:59:00 99 /min [facility] Systolic blood pressure 2020-11-24 19:59:00 135 mm[Hg] [facility] Diastolic blood pressure 2020-11-24 19:59:00 86 mm[Hg] [facility] Heart rate 2020-11-24 19:59:00 87 /min [facility] Body temperature 2020-11-24 19:59:00 36.94 Fransisca [facility] Systolic blood pressure 2020-08-16 16:13:00 133 mm[Hg] [facility] Diastolic blood pressure 2020-08-16 16:13:00 84 mm[Hg] [facility] Heart rate 2020-08-16 16:13:00 78 /min [facility] Body temperature 2020-08-16 16:13:00 37 Fransisca [facility] Respiratory rate 2020-08-16 16:13:00 20 /min [facility] Body height 2020-08-16 16:13:00 157.5 cm [facility] weight 2020-08-16 16:13:00 68.04 kg Univ [facility] BMI 2020-08-16 16:13:00 27.44 kg/m2 [facility] Oxygen saturation in Arterial blood by Pulse oximetry 2020-08-16 16:13:00 98 /min [facility] Systolic blood pressure 2020-08-16 16:13:00 133 mm[Hg] [facility] Diastolic blood pressure 2020-08-16 16:13:00 84 mm[Hg] [facility] Heart rate 2020-08-16 16:13:00 78 /min [facility] Body temperature 2020-08-16 16:13:00 37 Fransisca [facility] Respiratory rate 2020-08-16 16:13:00 20 /min [facility] Body height 2020-08-16 16:13:00 157.5 cm [facility] Body weight 2020-08-16 16:13:00 68.04 kg [facility] BMI 2020-08-16 16:13:00 27.44 kg/m2 [facility] Oxygen saturation in Arterial blood by Pulse oximetry 2020-08-16 16:13:00 98 /min [facility] Systolic blood pressure 2020-06-29 23:54:00 137 mm[Hg] [facility] Diastolic blood pressure 2020-06-29 23:54:00 84 mm[Hg] [facility] Heart rate 2020-06-29 23:54:00 105 /min [facility] Body temperature 2020-06-29 23:54:00 37.39 Fransisca [facility] Respiratory rate 2020-06-29 23:54:00 18 /min [facility] Body height 2020-06-29 23:54:00 160 cm [facility] Body weight 2020-06-29 23:54:00 69.854 kg [facility] BMI 2020-06-29 23:54:00 27.28 kg/m2 [facility] Oxygen saturation in Arterial blood by Pulse oximetry 2020-06-29 23:54:00 98 /min [facility] Systolic blood pressure 2020-06-29 23:54:00 137 mm[Hg] [facility] Diastolic blood pressure 2020-06-29 23:54:00 84 mm[Hg] [facility] Heart rate 2020-06-29 23:54:00 105 /min [facility] Body temperature 2020-06-29 23:54:00 37.39 Fransisca [facility] Respiratory rate 2020-06-29 23:54:00 18 /min [facility] Body height 2020-06-29 23:54:00 160 cm [facility] Body weight 2020-06-29 23:54:00 69.854 kg [facility] BMI 2020-06-29 23:54:00 27.28 kg/m2 [facility] Oxygen saturation in Arterial blood by Pulse oximetry 2020-06-29 23:54:00 98 /min [facility] Procedures Procedure Date / Time Performed Performing Clinicia n Source XR KUB 2020-12-09 02:14:31 [facility] 2020-12-09 02:08:00 [facility] PO[facility] TEST 2020-12-09 02:07:00 Destiny Rosa [facility] CONSENT/REFUSAL FOR DIAGNOSIS AND TREATMENT 2020-12-09 01:42:33 Doctor Unassigned, [place] [facility] URINALYSIS 2020-11-29 00:40:00 [facility]REFUS[facility] FOR DIAGNOSIS AND TREATMENT 2020-11-28 23:50:46 Doctor Unassigned, [place] [facility] POCT TEST 2020-11-24 20:28:00 Hal Fuentes [facility] XR CHEST 2 VW 2020-11-24 20:22:33 Carrie Fuentes [facility] URINALYSIS 2020-11-24 20:21:00 Carrie Fuentes U [facility] CONSENT/REFUSAL FOR DIAGNOSIS AND TREATMENT 2020-11-24 19:54:17 Doctor Unassigned, [place] [facility] POCT TEST 2020-08-16 16:57:00 David De Los Santos [facility] NOTICE OF PRIVACY PRACTICES 2020-08-16 16:07:36 Doctor Unassigned, [place] [facility] CONSENT/REFUSAL FOR DIAGNOSIS AND TREATMENT 2020-08-16 16:07:17 Doctor Unassigned, [place] [facility] NOTICE OF PRIVACY PRACTICES 2020-06-29 23:44:57 Doctor Unassigned, [place] [facility] CONSENT/REFUSAL FOR DIAGNOSIS AND TREATMENT 2020-06-29 23:44:38 Doctor Unassigned, [place] [facility] Encounters Start Date/Time End Date/Time Encounter Type Admission Type Attending [facility] Care Department Encounter ID Source 2022-05-21 14:08:27 2022-05-21 14:08:27 Outpatient [facility] [id number] 2022-05-20 17:03:34 2022-05-20 17:03:34 Outpatient [facility] [id number] 2020-12-08 20:55:00 2020-12-08 22:53:00 Emergency Carrie Fuentes [facility] 1.2.840.114 350.1.13.10 4.2.7.2.686 [id number] 2020-12-08 20:55:00 2020-12-08 22:53:00 Emergency Carrie Fuentes [facility] 1.2.840.114 350.1.13.10 4.2.7.2.686 [id number] [facility] 2020-12-08 20:55:00 2020-12-08 22:53:00 Emergency X CARRIE FUENTES [facility] ERT [id number] [facility] 2020-11-28 19:00:00 2020-11-28 20:58:00 Emergency Leah Gloria [facility] 1.2.840.114 350.1.13.10 4.2.7.2.686 [id number] 2020-11-28 19:00:00 2020-11-28 20:58:00 Emergency Leah Gloria [facility] 1.2.840.114 350.1.13.10 4.2.7.2.686 [id number] [facility] 2020-11-28 19:00:00 2020-11-28 19:00:00 Emergency X LEAH GLORIA [facility] ERT [id number] [facility] 2020-11-24 15:00:00 2020-11-24 15:48:00 Emergency Carrie Fuentes [facility] 1.2.840.114 350.1.13.10 4.2.7.2.686 [id number] 2020-11-24 15:00:00 2020-11-24 15:48:00 Emergency Carrie Fuentes [facility] 1.2.840.114 350.1.13.10 4.2.7.2.686 [id number] [facility] 2020-11-24 14:54:00 2020-11-24 14:54:00 Emergency X [facility] ERT [id number] [facility] 2020-08-16 10:14:00 2020-08-16 11:35:00 Emergency David De Los Santos [facility] 1.2.840.114 350.1.13.10 4.2.7.2.686 [id number] 2020-08-16 10:14:00 2020-08-16 11:35:00 Emergency Scotty, K [facility] 1.2.840.114 350.1.13.10 4.2.7.2.686 [id number] [facility] 2020-08-16 10:14:00 2020-08-16 10:14:00 Emergency X David DE LOS SANTOS [facility] ERT [id number] [facility] 2020-08-16 00:00:00 2020-08-16 00:00:00 Patient Secure Msg Doctor Unassigned, [place] [facility] 1.2.840.114 350.1.13.10 4.2.7.2.686 [id number] [facility] 2020-08-16 00:00:00 2020-08-16 00:00:00 Orders Only Doctor Unassigned, [place] [facility] 1.2.840.114 350.1.13.10 4.2.7.2.686 [id number] [facility] 2020-08-16 00:00:00 2020-08-16 00:00:00 Orders Only Doctor Unassigned, [place] [facility] 1.2.840.114 350.1.13.10 4.2.7.2.686 [id number] 2020-06-29 17:56:00 2020-06-29 18:41:00 Emergency David De Los Santos [facility] 1.2.840.114 350.1.13.10 4.2.7.2.686 [id number] [facility] 2020-06-29 17:56:00 2020-06-29 18:41:00 Emergency David De Los Santos [facility] 1.2.840.114 350.1.13.10 4.2.7.2.686 [id number] 2020-06-29 17:45:00 2020-06-29 17:45:00 Emergency X [facility] ERT [id number] [facility] Results Test Description Test Time Test Comments Results Result Co mments Source [id number]:07[facility]00* Test Item Value Reference Range Interpretation Comme nts POCT PREG (test code = 1605) negative On board controls acceptable with C Line (test code = 3574) present POCT PREG LOT # (test code = 3575) [id number] POCT PREG TEST DATE ( test code = 3576) 06/18/2022 Lab Interpretation (test cod e = 66849-3) Normal [facility] 00:59:53* Test Item Value Reference Range Interpretation Comme nts APPEARANCE (test code = 7332009121) Clear Clear COLOR (test code = 0873581397) Yellow Yellow PH (test code = 9352987155) 4.8-8.0 SP GRAVITY (test code = 0615252191) 1.003-1.030 GLU U QUAL (test code = 4732783723) Normal Normal BLOOD (test code = 0091596464) Negative Negative KETONES (test code = 5865420254) Negative Negative PROTEIN (test code = 2887-8) Negative Negative UROBILIN (test code = 8765596043) Normal Normal BILIRUBIN (test code = 1942925439) Negative Negative NITRITE (test code = 0414719573) Negative Negative LEUK RHONDA (test code = 8414392564) Negative Negative RBC/HPF (test code = 4419719306) <1 See_Comment [Automated [employer] Just Shared[employer] ge] The system which generated this result transmitted reference range: 0 - 3 HPF. The reference range was not used to interpret this result as normal/abnormal. WBC/HPF (test code = 0063387513) See_Comment [Automated [employer] Shared[employer]] The system which generated this result transmitted reference range: 0 - 5 HPF. The reference range was not used to interpret this result as normal/abnormal. BACTERIA (test code = 5664771228) Negative Negative MUCOUS (test code = 0718190465) Slight Negative LPF A SQ EPITH (test code = 5793664949) HPF Lab Interpretation (test code = 05834-9) [facility]normal [facility] 20[facility]36:01* Test Item Value Reference Range Interpretation Comme nts APPEARANCE (test code = 1463797854) Clear Clear COLOR (test code = 4384031904) Yellow Yellow PH (test code = 9904189532) 4.8-8.0 SP GRAVITY (test code = 5579711791) 1.003-1.030 GLU U QUAL (test code = 9951134936) Normal Normal BLOOD (test code = 2212382086) Negative Negative KETONES (test code = 4524319526) Negative Negative PROTEIN (test code = 2887-8) Negative Negative UROBILIN (test code = 0551154337) Normal Normal BILIRUBIN (test code = 5296043133) Negative Negative NITRITE (test code = 0336572600) Negative Negative LEUK RHONDA (test code = 3338524043) Negative Negative RBC/HPF (test code = 7761494842) See_Comment [Automated [employer]] The system which generated this result transmitted reference range: 0 - 3 HPF. The reference range was not used to interpret this result as normal/abnormal. WBC/HPF (test code = 4912938885) See_Comment [Automated [employer] Shared[employer]] The system which generated this result transmitted reference range: 0 - 5 HPF. The reference range was not used to interpret this result as normal/abnormal. BACTERIA (test code = 0032385077) Negative Negative MUCOUS (test code = 8051541585) Slight Negative LPF A SQ EPITH (test code = 6226543877) HPF Lab Interpretation (test code = 25039-1) Abnormal [facility] [id number] 20:28:00* Test Item Value Reference Range Interpretation Comme nts POCT PREG (test code = 1605) negative On board controls acceptable with C Line (test code = 3574) present POCT PREG LOT # (test code = 3575) [id number] POCT PREG TEST DATE ( test code = 3576) 06/18/2022 Lab Interpretation (test cod e = 81766-8) Normal [facility] [id number] 16:57:00* Test Item Value Reference Range Interpretation Comme nts POCT PREG (test code = 1605) negative On board controls acceptable with C Line (test code = 3574) present POCT PREG LOT # (test code = 3575) [id number] POCT PREG TEST DATE ( test code = 3576) 03/19/2022 Lab Interpretation (test cod e = 94106-2) Normal [facility]
[2024-12-07 16:03] LABS: Absolute Eosinophils 0.3 K/uL (0-0.5); Absolute Lymphocytes (CBC) 2.3 K/uL (0.7-4.9); Absolute Monocytes 0.5 K/uL (0.1-1.3); Absolute Neutrophil 4.6 K/uL (1.8-8.0); Basophils % 0.6 % (0-1.3); Eosinophils % 3.8 % (0-4.4); Hematocrit 38.6 % (36.0-45.0); Hemoglobin 13.4 g/dL (12.0-15.0); Lymphocytes % 29.3 % (15.3-44.8); MCH 30.8 pg (27.0-35.0); MCHC 34.8 g/dL (32.0-36.0); MCV 88.5 fL (80-100); MPV 8.5 fL (7.6-11.3); Monocytes % 7.1 % (3.3-12.3); Neutrophils % 59.2 % (41.7-73.7); Nucleated Red Blood Cells % 0.1 % (0-0); Platelets 294 thou/uL (152-406); RBC Red Blood Cell Count 4.36 M/uL (3.86-4.86); Red Cell Distribution Width 13.3 % (12.1-15.2)
[2024-12-07 16:08] LABS: Specific Gravity 1.028 (1.005-1.030); Urine Bilirubin NEGATIVE (Negative); Urine Blood Negative (Negative); Urine Clarity Clear (Clear); Urine Color Light-Yellow (Yellow); Urine Glucose NEGATIVE (Negative); Urine Ketones NEGATIVE (Negative); Urine Microscopic Reflex YN NO UMIC; Urine Nitrite NEGATIVE (Negative); Urine Protein NEGATIVE (Negative); Urine Urobilinogen Normal (Normal); Urine pH 6.5 (5.0-7.0)
[2024-12-07 16:09] LABS: Specific Gravity 1.028 (1.005-1.030)
[2024-12-07 16:28] LABS: Albumin 3.7 g/dL (3.4-5.0); Albumin/Globulin Ratio 1.2 (1.1-1.8); Anion Gap 9.4 mEq/L (5.0-15.0); Bilirubin Total 0.3 mg/dL (0.2-1.0); Potassium 3.4 mEq/L (3.5-5.1); Protein, Total 6.7 g/dL (6.4-8.2)
--- NOTE | 2024-12-07 16:50 | RAD REPORT ---
EXAMINATION: Head Brain Wo Cont CLINICAL INDICATION: Female, 24 years old.HEADACHE TECHNIQUE: Axial CT images from the skull base to the vertex without intravenous contrast. Coronal an d sagittal reformatted images were created from the data set. One or more of the following dose reduction techniques were used: Automated exposure control, adjustment of the mA and/or kV according to patient size, and/or iterative reconstruction. Unless otherwise specified, incidental findings do not require dedicated imaging follow-up. [id number]. COMPARISON: No prior exam. FINDINGS: INTRACRANIAL: No acute intracranial hemorrhage. No hydrocephalus. No mass effect or midline shift. No significant white matter disease. VASCULATURE: No visualized abnormalities in the arteries or dural venous sinuses. SCALP/SKULL: No calvarial fracture identified. No acute soft tissue abnormality. SINUSES: The visualized paranasal sinuses are mostly clear. No significant mastoid fluid. IMPRESSION: No acute intracranial abnormality.
[2024-12-07] MEDS ORDERED: dexAMETHasone 10 MG/ML VIAL ONE (17:16)
[2024-12-07] MEDS ORDERED: KETOROLAC 30 MG/ML INJ ONE (17:16)
[2024-12-07] MEDS ORDERED: NA CHLORIDE 0.9% 1,000 ML ONE (17:17)
[2024-12-07] MEDS ORDERED: DIPHENHYDRAMINE 50 MG/ML VIAL ONE (17:17)
[2024-12-07] MEDS ORDERED: METOCLOPRAMIDE 10 MG/2mL INJ ONE (17:17)
--- NOTE | 2024-12-07 18:08 | EDPHYS ---
Physician Documentation [facility] Name: Kiah Murray Age: 24 yrs Sex: Female : 2000 Arrival Date: 12/07/2024 Time: 15:20 Bed 16 Private MD: ED Physician Maribel Ruth HPI: 12/07 18:44 This 24 yrs old Female presents to ER via Ambulatory with complaints of kb Headache, High Blood Pressure. 18:44 Patient is a 24-year-old female who presents for headache to the back of her head that kb started 1 week ago. States it has been constant since onset. Reports nausea, vomiting, photophobia. States she has gotten it to go away a couple of times with BC powder, but it always comes back. Denies fever, cough, congestion. Denies previous history of headaches. Reports his headache gets worse in the sunlight and when she looks down for a long period of time. Someone recommended that she check her blood pressure today so she checked and it was 140/90 so her friend told her she should come to the ER for evaluation.. 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 - Infectious Disease History:: Denies. - Social history:: Smoking status: Reported history of juuling and/or vaping. Patient denies any tobacco usage or history of. ROS: 18:49 Constitutional: As per HPI kb Exam: 18:49 Constitutional: This is a well developed, well nourished patient who is awake, alert, kb and in no acute distress. Head/Face: Normocephalic, atraumatic. ENT: Moist Mucous membranes Cardiovascular: Regular rate Respiratory: Respirations even and unlabored. No increased work of breathing. Talking in full sentences Skin: Warm, dry with normal turgor. Normal color. MS/ Extremity: Pulses equal, no cyanosis. Neurovascular intact. Full, normal range of motion. Neuro: Awake and alert, GCS 15, oriented to person, place, time, and situation. Vital Signs: 15:36 BP 145 / 73; Pulse 72; Resp 17; Temp 97.9; Pulse Ox 100% ; Weight 72.57 kg; Height 5 hb ft. 2 in. ; Pain 8/10; 18:32 BP 134 / 70; Pulse 72; Resp 18; Temp 98; Pulse Ox 100% on R/A; kj2 15:36 Body Mass Index 29.26 (72.57 kg, 157.48 cm) hb 15:36 Pain Scale: Adult hb [place]isel Coma Score: 18:49 Eye Response: spontaneous(4). Motor Response: obeys commands(6). Verbal Response: kb oriented(5). Total: 15. MDM: 15:25 Medical Screening Exam initiated kb 18:49 Differential diagnosis: Migraine, cluster headache, dehydration, , ICH. Data kb reviewed: vital signs, nurses notes. I considered the following discharge prescriptions or medication management in the emergency department I discussed and recommended Over The Counter medications. Counseling: I had a detailed discussion with the patient and/or guardian regarding the historical points, exam findings, and any diagnostic results supporting the discharge/admit diagnosis, lab results, radiology results, the need for outpatient follow up, a family practitioner, to return to the emergency department if symptoms worsen or persist or if there are any questions or concerns that arise at home. Special discussion: I have referred the patient to see his PCP for further evaluation of high blood pressure. ED course: Patient feeling better after treatment and wants to go home now.. 12/07 15:40 Order name: UA Rfx Adrián Cult if indicated kb 12/07 15:40 Order name: Test, Urine; Complete Time: 16:10 kb 12/07 15:40 Order name: CBC with Diff; Complete Time: 16:17 kb 12/07 15:40 Order name: CMP; Complete Time: 16:40 kb 12/07 15:40 Order name: CT Head Brain wo Cont; Complete Time: 16:51 kb 12/07 15:40 Order name: IV Start; Complete Time: 15:57 kb Administered Medications: 17:27 Drug: Ketorolac IVP 15 mg IVP once Route: IVP; Site: left antecubital; kj2 18:51 Follow up: Response: No adverse reaction kj2 17:27 Drug: Decadron - Dexamethasone IVP 10 mg IVP once Route: IVP; Site: left antecubital; kj2 18:51 Follow up: Response: No adverse reaction kj2 17:27 Drug: metoCLOPramide IVP 10 mg IVP once; over 1 to 2 minutes Route: IVP; Site: right kj2 antecubital; 18:51 Follow up: Response: No adverse reaction kj2 17:27 Drug: diphenhydrAMINE IVP 12.5 mg IVP once Route: IVP; Site: left antecubital; kj2 18:51 Follow up: Response: No adverse reaction kj2 17:28 Drug: NS 0.9% IV 1000 ml IV at 1000 ml once; to be given as a bolus over 60 minutes kj2 Route: IV; Rate: 1000 ml; Site: left antecubital; Disposition Summary: 12/07/24 18:08 Discharge Ordered Notes: Location: Home kb Condition: Stable kb Diagnosis - Headache kb Followup: kb - With: Emergency Department - When: As needed - Reason: Worsening of condition Followup: kb - With: Private Physician - When: 2 - 3 days - Reason: Recheck today's complaints, Continuance of care, Re-evaluation by your physician Discharge Instructions: - Discharge Summary Sheet kb - General Headache Without Cause, [id number] kb Forms: - Medication Reconciliation Form kb - Antibiotic Education kb - Prescription Opioid Use kb - Patient Portal Instructions kb - Leadership Thank You Letter kb Signatures: Dispatcher [employer] EDJosephine Castillo FNP-Marquez DAVISON-Cheyenne Granados, RN RN Cindy Bonilla RN RN kj2 Corrections: (The following items were deleted from the chart) 15:38 15:37 PMHx: None; hb hb 15:39 15:37 Social history: Smoking status: Patient reports the use of cigarette tobacco hb products, smokes one-half pack cigarettes per day, hb 15:40 15:40 UA Rfx Adrián Cult if indicated+U.LAB.BRZ ordered. EDMS EDMS 15:40 15:40 Test, Urine+UC.LAB.BRZ ordered. EDMS EDMS 15:40 15:40 CBC+H.LAB.BRZ ordered. EDMS EDMS 15:40 15:40 COMPREHENSIVE METABOLIC PANEL+C.LAB.BRZ ordered. EDMS EDMS 15:40 15:40 Head Brain Wo Cont+CT.RAD.BRZ ordered. EDMS EDMS
--- NOTE | 2024-12-07 18:08 | ER ---
Nurse's Notes [facility] Name: Kiah Murray Age: 24 yrs Sex: Female : 2000 Arrival Date: 12/07/2024 Time: 15:20 Bed 16 Private MD: Diagnosis: Headache Presentation: 12/07 15:36 Chief complaint: Patient states: MAS for 6 days. BP 140/90 today. Coronavirus screen: hb Client denies travel out of the [place] in the last 14 days. At this time, the client does not indicate any symptoms associated with coronavirus-19. Ebola Screen: Patient denies travel to an Ebola-affected area in the 21 days before illness onset. Initial Sepsis Screen: Does the patient meet any 2 criteria? No. Patient's initial sepsis screen is negative. Does the patient have a suspected source of infection? No. Patient's initial sepsis screen is negative. Risk Assessment: Do you want to hurt yourself or someone else? Patient reports no desire to harm self or others. Onset of symptoms was December 01, 2024. 15:36 Method Of Arrival: Ambulatory 15:36 Acuity: LYN 3 hb Triage Assessment: 18:35 Headache History: The patient has had previous headaches and this one is similar to kj2 previous episodes. General: Appears in no apparent distress. Pain: Pain began suddenly, Also complains of no other associated symptoms. 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 - Infectious Disease History:: Denies. - Social history:: Smoking status: Reported history of juuling and/or vaping. Patient denies any tobacco usage or history of. Screenin:15 [facility] ED Fall Risk Assessment (Adult) History of falling in the last 3 months, kj2 including since admission No falls in past 3 months (0 pts) Confusion or Disorientation No (0 pts) Intoxicated or Sedated No (0 pts) Impaired Gait No (0 pts) Mobility Assist Device Used No (0 pt) Altered Elimination No (0 pt) Score/Fall Risk Level 0 - 2 = Low Risk Maintained a safe environment, Hourly rounding (assess needs \T\ fall precautionary measures) done. Abuse screen: Denies threats or abuse. Denies injuries from another. Nutritional screening: No deficits noted. 17:15 Tuberculosis screening: No symptoms or risk factors identified. kj2 Assessment: 17:15 General: Appears in no apparent distress. Behavior is calm, cooperative. Pain: kj2 Complains of pain in head Pain currently is 6 out of 10 on a pain scale. Neuro: Level of Consciousness is awake, alert, obeys commands, Oriented to person, place, time, situation. Cardiovascular: Patient's skin is warm and dry. Respiratory: Airway is patent Respiratory effort is even, unlabored. GI: No signs and/or symptoms were reported involving the gastrointestinal system. : No signs and/or symptoms were reported regarding the genitourinary system. 18:31 Reassessment: Patient appears in no apparent distress at this time. Patient and/or kj2 family updated on plan of care and expected duration. Pain level reassessed. Patient is alert, oriented x 3, equal unlabored respirations, skin warm/dry/pink. Vital Signs: 15:36 BP 145 / 73; Pulse 72; Resp 17; Temp 97.9; Pulse Ox 100% ; Weight 72.57 kg; Height 5 hb ft. 2 in. ; Pain 8/10; 18:32 BP 134 / 70; Pulse 72; Resp 18; Temp 98; Pulse Ox 100% on R/A; kj2 15:36 Body Mass Index 29.26 (72.57 kg, 157.48 cm) hb 15:36 Pain Scale: Adult hb [place] Coma Score: 18:49 Eye Response: spontaneous(4). Motor Response: obeys commands(6). Verbal Response: kb oriented(5). Total: 15. ED Course: 15:22 Patient arrived in ED. mr 15:25 [facility] kb 15:25 Maribel Ruth MD is Attending Physician. kb 15:37 Triage completed. hb 15:38 Arm band placed on. hb 15:57 CMP Sent. bc6 15:57 CBC with Diff Sent. bc6 15:57 Initial lab(s) drawn, by me, sent to lab. Inserted saline lock: 20 gauge in right bc6 antecubital area, using aseptic technique. Blood collected. Flushed with 10 mL NS. 16:38 CT Head Brain wo Cont In Process Unspecified. EDMS 17:01 Patient placed in an exam room, on a stretcher. ll1 17:11 Cindy Bonilla, RN is Primary Nurse. kj2 17:15 Patient has correct armband on for positive identification. Provided Education on: call kj2 light. 18:36 No provider procedures requiring assistance completed. IV discontinued, intact, kj2 bleeding controlled, No redness/swelling at site. Pressure dressing applied. Administered Medications: 17:27 Drug: Ketorolac IVP 15 mg IVP once Route: IVP; Site: left antecubital; kj2 18:51 Follow up: Response: No adverse reaction kj2 17:27 Drug: Decadron - Dexamethasone IVP 10 mg IVP once Route: IVP; Site: left antecubital; kj2 18:51 Follow up: Response: No adverse reaction kj2 17:27 Drug: metoCLOPramide IVP 10 mg IVP once; over 1 to 2 minutes Route: IVP; Site: right kj2 antecubital; 18:51 Follow up: Response: No adverse reaction kj2 17:27 Drug: diphenhydrAMINE IVP 12.5 mg IVP once Route: IVP; Site: left antecubital; kj2 18:51 Follow up: Response: No adverse reaction kj2 17:28 Drug: NS 0.9% IV 1000 ml IV at 1000 ml once; to be given as a bolus over 60 minutes kj2 Route: IV; Rate: 1000 ml; Site: left antecubital; Medication: 18:34 VIS not applicable for this client. kj2 Outcome: 18:08 Discharge ordered by MD. bernstein 18:36 Discharged to home ambulatory, kj2 18:36 Condition: stable 18:36 Discharge instructions given to patient, Instructed on discharge instructions, follow up and referral plans. Demonstrated understanding of instructions, follow-up care, 18:51 Patient left the ED. kj2 Signatures: Dispatcher [employer] EDWV Josephine Marcus, CHEMICAL COMPOUNDER HELPER-C CHEMICAL COMPOUNDER HELPER-CkChrista Aguila, Reg Reg mr WaddellCheyenne, RN Ethan Sanon RN RN ll1 Arianna Solorzano 6 Cindy Bonilla, RN RN kj2 Corrections: (The following items were deleted from the chart) 15:38 15:37 PMHx: None; hb hb 15:39 15:36 BP 145 / 73; Pulse 72bpm; Resp 17bpm; Pulse Ox 100%; hb hb 15:39 15:37 Social history: Smoking status: Patient reports the use of cigarette tobacco hb products, smokes one-half pack cigarettes per day, hb 17:28 17:27 Decadron - Dexamethasone IVP 10 mg IVP in right antecubital kj2 kj2 17:28 17:27 Ketorolac IVP 15 mg IVP in right antecubital kj2 kj2 17:29 17:27 diphenhydrAMINE IVP 12.5 mg IVP in right antecubital kj2 kj2 18:31 18:29 General: Appears kj2 kj2
[2024-12-07 19:49] VITALS: O2SAT 100
[2024-12-07 19:52] VITALS: BP 134/70; TEMP 98
== END 2024-12-07 18:51 | disposition home or self-care (01) ==
LOC: ER 15:20
DX: R51.9 Headache, unspecified (principal)
CPT/HCPCS: 85025; 36415; 81025; 81003; 80053; 70450; J2765; J1200; J1100; J7030